=== PATIENT | female | born 1995 | race Caucasian/White ===

== ENCOUNTER 2017-04-23 16:37 | Emergency (ER) | payer BC ==
[~2017-04-23] VITALS: Ht 160 cm; Wt 50.0 kg
[2017-04-23 17:13] VITALS: BP 124/68
[2017-04-23 21:44] LABS: BASOPHILS % 0.8 % (0.0-2.0); EOSINOPHILS % 3.4 % (0.0-5.0); HEMATOCRIT. 38.9 % (36.0-48.0); HEMOGLOBIN. 13.2 g/dL (12.0-16.0); MEAN CORPUSCULAR HEMOGLOBIN 31.7 pg (28.0-32.0); MEAN CORPUSCULAR VOLUME 92.9 fL (81.0-99.0); MEAN PLATELET VOLUME 7.9 fl (7.4-10.4); MONOCYTES % 7.3 % (2.0-8.0); NEUTROPHILS % 56.5 % (40.0-76.0); PLATELET 234 x1000/uL (130-400); RED BLOOD CELL COUNT 4.18 mill/uL (4.2-5.4); RED CELL DISTRIBUTION WIDTH 13.2 % (11.6-14.6)
[2017-04-23 21:51] LABS: INR 1.1; PROTHROMBIN TIME 11.3 sec
[2017-04-23 21:52] LABS: CHLORIDE 106 mEq/L (98-107)
[2017-04-23 21:59] LABS: CARBON DIOXIDE 28 mEq/L (21-32)
[2017-04-23 22:36] LABS: CLARITY URINE CLOUDY (CLEAR); COLOR URINE YELLOW (YELLOW); GLUCOSE URINE NEGATIVE (NEGATIVE); KETONES URINE TRACE (NEGATIVE); LEUKOCYTE ESTERASE URINE NEGATIVE (NEGATIVE); NITRITE URINE NEGATIVE (NEGATIVE); OCCULT BLOOD URINE NEGATIVE (NEGATIVE); PROTEIN URINE 1+ (NEGATIVE); SPECIFIC GRAVITY URINE 1.036 (1.005-1.030)
[2017-04-23 22:37] LABS: UCG SCREEN NEGATIVE
[2017-04-23] MEDS ORDERED: VISCOUS LIDOCAINE 2% 15 ML UDC PO STA (22:50)
[2017-04-23] MEDS ORDERED: DICYCLOMINE 10 MG/5 ML ORAL SYR PO STA (22:50)
[2017-04-23] MEDS ORDERED: MAGNESIUM/ALUMINUM HYDROXIDE/SIMETHICONE 30ML UDC PO STA (22:50)
== END 2017-04-24 00:40 | disposition home or self-care (01) ==
LOC: ER 22:02
DX: R10.13 Epigastric pain (principal)
CPT/HCPCS: 36415; 80053; 81001; 81025; 83690; 85025; 85610; 99284